=== PATIENT | female | born 1975 | race Caucasian/White ===

== ENCOUNTER 2017-05-16 02:54 | Emergency (ER) | payer SELFPAY ==
[~2017-05-16] VITALS: Ht 175.3 cm; Wt 129.3 kg
[2017-05-16] MEDS ORDERED: TRAMADOL (03:53)
[2017-05-16] MEDS ORDERED: IBUP-1957 PO (03:53)
[2017-05-16] MEDS ORDERED: SOMA (03:53)
--- NOTE | 2017-05-16 04:27 | NUR ---
Dr. Sage at bedside for MSE, awaiting further orders.
[2017-05-16] MEDS ORDERED: OXYCODONE/APAP 5-325 MG TABLET PO ONE (04:30)
[2017-05-16] MEDS ORDERED: DIAZEPAM 2 MG TABLET PO ONE (04:30)
[2017-05-16] MEDS ORDERED: OXYCODONE/APAP 5-325 MG TABLET ONE (04:57)
[2017-05-16] MEDS ORDERED: DIAZEPAM 5 MG TABLET ONE (04:57)
--- NOTE | 2017-05-16 04:57 | NUR ---
Pt stable for discharge per Dr. Sage. Pt given ACI. Pt verbalized understanding of dc instructions. Pt ambulated out of ER with steady gait to wr to wait for ride home.
[2017-05-16 04:58] VITALS: BP 158/90
== END 2017-05-16 04:55 | disposition home or self-care (01) ==
LOC: ER 02:54
DX: G89.29 Other chronic pain (principal); M54.40 Lumbago with sciatica, unspecified side; Z88.6 Allergy status to analgesic agent
CPT/HCPCS: A4663